=== PATIENT | female | born 1930 | race Caucasian/White ===

== ENCOUNTER 2017-01-09 04:52 | Emergency (ER) | payer OTHER ==
[~2017-01-09] VITALS: Ht 152.4 cm; Wt 53.4 kg
[~2017-01-09 04:52] MED LIST: ARICEPT10 MG PO; ASPIRIN325 MG PO; BACTRIM,SEPT1 TABLET PO; Colace PO; DONEPEZIL HCL10 MG PO; GABAPENTIN300 MG PO; GEMFIBROZIL600 MG PO; GLIPIZIDE XL10 MG PO; Januvia PO; METFORMIN HCL500 MG PO; MIRALAX17 GM PO; Miralax, Glycolax PO; Tylenol Regular Stre PO; ZESTORETIC 20-1 EAC1 PO; gemfibrozil; glipizide; lisinopril; metformin
[2017-01-09 05:46] LABS: HEMATOCRIT 36.6 % (36.0-46.0); MCH 29.4 PG (29.0-34.0); MCHC 31.4 G/DL (30.0-36.0); MCV 93.6 FL (83-99); MEAN PLAT.VOLUME 10.6 uM^3 (9.5-12.4); PLATELET COUNT 306 K/uL (156-360); RBC DIS.WIDTH-CV 19.5 % (11.8-14.6); RBC DIS.WIDTH-SD 66.1 % (39-53); RED BLOOD COUNT 3.91 M/uL (3.80-5.20); WHITE BLOOD COUNT 7.2 K/uL (4.1-10.2)
[2017-01-09 05:57] LABS: CHLORIDE 106 mEq/L (99-109); POTASSIUM 4.4 mEq/L (3.7-5.4); SODIUM 141 mEq/L (136-147)
[2017-01-09 05:59] LABS: GLUCOSE 122 mg/dL (70-99)
[2017-01-09 06:00] LABS: ANION GAP 12 MEQ/L (2-14)
[2017-01-09 06:02] LABS: GFR ESTIMATE (CALCULATED) > 59 mL/min/
[2017-01-09 06:03] LABS: UREA NITROGEN (BUN) 26 mg/dL (9-23)
[2017-01-09 06:05] LABS: CREATINE KINASE 35 IU/L (1-294); TOTAL CK 35 IU/L (1-294)
[2017-01-09 06:05] LABS: ADD MIUA? YES; BILIRUBIN NEGATIVE; BLOOD NEGATIVE; COLOR STRAW ((YELLOW)); GLUCOSE (STRIP) NEGATIVE; KETONES NEGATIVE; LEUKOCYTES TRACE; NITRITE NEGATIVE; PROTEIN (STRIP) NEGATIVE; SPECIFIC GRAVITY 1.004 (1.000-1.030); UROBILINOGEN 0.2 MG/DL (0.2-1.0)
[2017-01-09 06:08] LABS: TROP-I INTERPRETATION NEGATIVE; TROPONIN-I 0.01 ng/mL (0.0-0.30)
[2017-01-09 06:09] LABS: BACTERIA RARE /HPF; EPITHELIAL CELLS RARE /HPF; MUCUS NONE SEEN /LPF; RED BLOOD CELLS 0-5 /HPF (0-5); UCUL ADDED? NO
[2017-01-09 06:11] LABS: CK-MB 1.8 ng/mL (0.0-4.9)
[2017-01-09 06:45] VITALS: BP 166/68
== END 2017-01-09 06:46 ==
LOC: EME 04:52
PROVIDERS: Emergency Medicine
DX: M54.9 Dorsalgia, unspecified (principal); Z91.81 History of falling; G30.9 Alzheimer's disease, unspecified; F02.80 Dementia in other diseases classified elsewhere, unspecified severity, without behavioral disturbance, psychotic disturbance, mood disturbance, and anxiety; I10 Essential (primary) hypertension; E11.9 Type 2 diabetes mellitus without complications; Z79.84 Long term (current) use of oral hypoglycemic drugs; Z88.5 Allergy status to narcotic agent; Z88.8 Allergy status to other drugs, medicaments and biological substances
CPT/HCPCS: 70450; 71010; 72125; 73502; 80048; 81003; 82550; 82553; 84484; 85027; 93005; 99281; 99284